=== PATIENT | female | born 1970 | race Caucasian/White ===

== ENCOUNTER → 2017-07-01 | Day surgery (SDC) | payer BC ==
[2017-06-24 11:41] VITALS: BMI 55.0
[~2017-07-01] VITALS: Ht 152.4 cm; Wt 127.3 kg
[~2017-07-01] MED LIST: ACET-1256 PO; AMLO-110 PO; ATRIN INH; BIOT1CHW PO; BUSP1TAB46 PO; EFF75 PO; IPRA1AER2 INH; LIDOCAINE HCL 2% 2 ML VIAL (20MG/ML) ONE; LISI20TA3 PO; ONDANSETRON INJ 2 MG/ML 2 ML VIAL IV PRN; PEDICHW50 PO; PRLSR20 PO; PROPOFOL IV EMULSION 10 MG/ML 20 ML VIAL ONE; SUCR1TAB29 PO; TRAM-10 PO
[2017-07-01 08:55] VITALS: Ht 152.4 cm; Wt 127.3 kg
--- NOTE | 2017-07-01 09:09 | Endo History and Physical ---
History & Physical Date of Service: July 01, 2017. Chief Complaint: RECHECK FOR GASTRIC ULCER PRE GASTRIC BYPASS SURGERY Referring Physician: DR ALBERTS History of Present Illness Patient notes having no specific symptoms today. She is here for follow-up endoscopy due to gastric ulcers seen on a recent upper endoscopy. Past Surgical History Hx Cardiac Surgery: No Hx Internal Defibrillator: No Hx Pacemaker: No Hx Abdominal Surgery: Yes ( X 2, TUBAL LIGATION, D&C) Hx Post-Op Nausea and Vomiting: No Hx Cancer Surgery: No Hx Thoracic Surgery: No Hx Orthopedic: No Hx Urinary Tract Surgery: No Family History Colon CA Social History Smoking Status: Never Smoker Hx Substance Use: No Hx Alcohol Use: Yes (OCCASIONALLY) Allergies Coded Allergies: NO KNOWN DRUG ALLERGIES (Verified Allergy, Unknown, ., 07/01/17) Uncoded Allergies: ORANGES (Allergy, Unknown, ITCHING THROAT, 05/14/17) PEANUTS (Allergy, Unknown, TONGUE ITCHING, BLISTERING UNDER EYES, 05/14/17) CAN EAT PEANUT BUTTER Current Medications Reported Home Medications Medications Dose Route/Sig Max Daily Dose Days Date Category Tylenol (Acetaminophen) 500 Mg Tab 1,000 Mg PO Q4 PRN 06/24/17 Reported Hair Skin & Nails ... 1250-7.5-7.5 Mcg-mg-Unt (Biotin W/ Vitamins C & E) 1 Chw Chw 1 Tab PO QAM 06/24/17 Reported Flintstones Chewable (Pediatric Multiple Vitamin W/) 1 Chw Chw 1 Tab PO QAM 06/24/17 Reported Atrovent Hfa (Ipratropium [place]) 200 Puffs/3400 Mcg Aers 2 Puffs INH QID PRN 06/24/17 Reported Carafate (Sucralfate) 1 Gm Tab 1 Tab PO QID 30 06/24/17 Reported Prilosec (Omeprazole) 20 Mg Capcr 20 Mg PO BID 06/24/17 Reported Norvasc (Amlodipine Besylate) 5 Mg Tab 5 Mg PO QAM 05/14/17 Reported Ultram (Tramadol HCl) 50 Mg Tab 50 Mg PO Q6H PRN 05/14/17 Reported Effexor (Venlafaxine Hcl) 75 Mg Tab 2 Tab PO QAM 05/14/17 Reported Prinivil (Lisinopril) 20 Mg Tab 20 Mg PO QAM 05/14/17 Reported Combivent Respimat (Ipratropium-Albuterol) 1 Aer Aer 1 Puffs INH QID PRN 05/14/17 Reported Buspirone Hcl 7.5 Mg Tab 1 Tab PO QAM 05/14/17 Reported Vital Signs Weight (Kilograms): 127.27 Height (Feet): 5 Height (Inches): 0 Date Time Temp Pulse Resp B/P (MAP) Pulse Ox O2 Delivery O2 Flow Rate FiO2 07/01/17 09:00 36.7 83 20 145/92 (109) 96 Room Air Physical Exam General Appearance: no apparent distress Respiratory/Chest: Auscultation: breath sounds normal Cardiovascular: Heart Auscultation: RRR Abdomen: Inspection & Palpation: soft Assessment and Plan Patient for upper endoscopy today. We discussed the risks to include bleeding, infection, perforation, pulmonary problems and cardiac issues.
--- NOTE | 2017-07-01 09:37 | GI REPORT ---
Patient Name: Qiana Jaime Procedure Date: 07/01/2017 8:59 AM Date of : 1970 Admit Type: Outpatient Age: 46 Gender: Female Attending MD: Wali Jim DO Procedure: Upper GI endoscopy Providers: Wali Jim DO Referring MD: Demarcus Pearson Indications: Follow-up of gastric ulcer Medicines: Monitored Anesthesia Care Complications: No immediate complications. Estimated blood loss: Minimal. Estimated Blood Loss: Estimated blood loss was minimal. Procedure: Pre-Anesthesia Assessment: - Prior to the procedure, a History and Physical was performed, and patient medications, allergies and sensitivities were reviewed. The patient's tolerance of previous anesthesia was reviewed. - The risks and benefits of the procedure and the sedation options and risks were discussed with the patient. All questions were answered and informed consent was obtained. - Patient identification and proposed procedure were verified prior to the procedure by the physician, the nurse and the belly dancer. The procedure was verified in the procedure room. - Pre-procedure physical examination revealed no contraindications to sedation. - ASA Grade Assessment: III - A patient with severe systemic disease. - After reviewing the risks and benefits, the patient was deemed in satisfactory condition to undergo the procedure. - The anesthesia plan was to use monitored anesthesia care (MAC). - Immediately prior to administration of medications, the patient was re-assessed for adequacy to receive sedatives. - The heart rate, respiratory rate, oxygen saturations, blood pressure, adequacy of pulmonary ventilation, and response to care were monitored throughout the procedure. - The physical status of the patient was re-assessed after the procedure. After obtaining informed consent, the endoscope was passed under direct vision. Throughout the procedure, the patient's blood pressure, pulse, and oxygen saturations were monitored continuously. The Scope was introduced through the mouth, and advanced to the third part of duodenum. The upper GI endoscopy was accomplished without difficulty. The patient tolerated the procedure well. Findings: The examined esophagus was normal. The Z-line was regular and was found 35 cm from the incisors. The gastric fundus, gastric body and incisura were normal. Localized minimal inflammation characterized by erythema and granularity was found in the gastric antrum. Biopsies were taken with a cold forceps for histology. Estimated blood loss was minimal. The examined duodenum was normal. Impression: - Normal esophagus. - Z-line regular, 35 cm from the incisors. - Normal gastric fundus, gastric body and incisura. - Mild gastritis (no ulcers seen today). Biopsied. - Normal examined duodenum. Recommendation: - Discharge patient to home (ambulatory). - Advance diet as tolerated today. - Continue present medications. Wali Jim D.O. Wali Jim, 07/01/2017 9:37:11 AM This report has been signed electronically. Note Initiated On: 07/01/2017 8:59 AM Number of Addenda: 0 I attest to the content of the Intraoperative Record and orders documented therein, exceptions below {[id number]}
--- NOTE | 2017-07-01 09:40 | Discharge Instructions ---
Endoscopy Patient Instructions Date / Procedure(s) Performed July 01, 2017. EGD Allergy Information Coded Allergies: NO KNOWN DRUG ALLERGIES (Verified Allergy, Unknown, ., 07/01/17) Uncoded Allergies: ORANGES (Allergy, Unknown, ITCHING THROAT, 05/14/17) PEANUTS (Allergy, Unknown, TONGUE ITCHING, BLISTERING UNDER EYES, 05/14/17) CAN EAT PEANUT BUTTER Discharge Date / Findings July 01, 2017. Mild gastritis (otherwise normal) Medication Instructions Reported Home Medications Medications Dose Route/Sig Max Daily Dose Days Date Category Tylenol (Acetaminophen) 500 Mg Tab 1,000 Mg PO Q4 PRN 06/24/17 Reported Hair Skin & Nails ... 1250-7.5-7.5 Mcg-mg-Unt (Biotin W/ Vitamins C & E) 1 Chw Chw 1 Tab PO QAM 06/24/17 Reported Flintstones Chewable (Pediatric Multiple Vitamin W/) 1 Chw Chw 1 Tab PO QAM 06/24/17 Reported Atrovent Hfa (Ipratropium [place]) 200 Puffs/3400 Mcg Aers 2 Puffs INH QID PRN 06/24/17 Reported Carafate (Sucralfate) 1 Gm Tab 1 Tab PO QID 30 06/24/17 Reported Prilosec (Omeprazole) 20 Mg Capcr 20 Mg PO BID 06/24/17 Reported Norvasc (Amlodipine Besylate) 5 Mg Tab 5 Mg PO QAM 05/14/17 Reported Ultram (Tramadol HCl) 50 Mg Tab 50 Mg PO Q6H PRN 05/14/17 Reported Effexor (Venlafaxine Hcl) 75 Mg Tab 2 Tab PO QAM 05/14/17 Reported Prinivil (Lisinopril) 20 Mg Tab 20 Mg PO QAM 05/14/17 Reported Combivent Respimat (Ipratropium-Albuterol) 1 Aer Aer 1 Puffs INH QID PRN 05/14/17 Reported Buspirone Hcl 7.5 Mg Tab 1 Tab PO QAM 05/14/17 Reported Provider Instructions Activity Restrictions - No exercising or heavy lifting for 24 hours. - Do not drink alcohol the day of the procedure. - Do not drive a car or operate machinery until the day after the procedure. - Do not make any important decisions or sign important papers in 24 hours after the procedure. Following Day: - Return to full activity which may include returning to work/school. Diet Start your diet with liquids and light foods (jello, soup, juice, toast). Then eat your usual diet if not nauseated. Treatment For Common After Affects For mild abdominal pain, bloating, or excessive gas: - Rest - Eat lightly - Lie on right side Follow-Up Information Follow-up with DR ALBERTS and Dr. Brown as scheduled Would continue Omeprazole at 20 mg per day Stop Carafate Follow-up with gastroenterology () as needed. Anesthesia Information What You Should Know You have had a procedure that required some medicine to reduce anxiety and discomfort. This treatment is called moderate sedation. After receiving the treatment, you may be sleepy, but you will be able to breathe on your own. The effects of the treatment may last for several hours. Follow these instructions along with Activity/Diet recommendations noted above: * Do NOT do anything where dizziness or clumsiness would be dangerous. * Rest quietly at home today, then you can be up and about tomorrow. * Have a responsible person stay with you the rest of today. * You may have had an I.V. today. If so, you may take the dressing off later today. Recommendations Call your doctor if: * Trouble breathing * Continuous vomiting for more than 24 hours * Temperature above 101 degrees * Severe abdominal pain or bloating * Pain not relieved by pain medicine ordered * There is increased drainage or redness from any incision * A large amount of rectal bleeding greater than 2-3 tablespoons. (If you had a polyp/s removed or have hemorrhoids, a small amount of blood - from the rectum is to be expected.) * You have any unanswered questions or concerns. IN THE EVENT OF A SERIOUS EMERGENCY, GO TO THE NEAREST EMERGENCY ROOM Your discharge instructions were prepared by provider Wali Jim. Patient Instructions Signature Page Qiana Jaime Patient (or Guardian) Signature/Date: I have read and understand the instructions given to me by my caregivers. Caregiver/RN/Doctor Signature/Date: The above-named patient and/or guardian has received patient instructions on this date. + Original Patient Signature Page (only) stays with chart. Please make copy for patient.
--- NOTE | 2017-07-01 09:54 | Anesthesiology Progress Note ---
Anesthesia Post Op Note Date & Time July 01, 2017 at 09:54 Vital Signs Pain Intensity: 0 Vital Signs Past 12 Hours Date Time Temp Pulse Resp B/P (MAP) Pulse Ox O2 Delivery O2 Flow Rate FiO2 07/01/17 09:35 78 16 132/86 (101) 96 Room Air 07/01/17 09:00 36.7 83 20 145/92 (109) 96 Room Air Notes Mental Status: alert / awake / arousable, participated in evaluation Pt Amnestic to Procedure: Yes Nausea / Vomiting: adequately controlled Pain: adequately controlled Airway Patency, RR, SpO2: stable & adequate BP & HR: stable & adequate Hydration State: stable & adequate Anesthetic Complications: no major complications apparent
[2017-07-01 09:55] VITALS: BP 138/85; PULSE 72; O2SAT 99
== END | disposition home or self-care (01) ==
LOC: MERGE 08:34 → C.GI 08:34
PROVIDERS: ATTEND Internal Medicine Gastroenterology
DX: Z09 Encounter for follow-up examination after completed treatment for conditions other than malignant neoplasm (principal); Z87.19 Personal history of other diseases of the digestive system; K29.50 Unspecified chronic gastritis without bleeding; F41.9 Anxiety disorder, unspecified; F32.9 Major depressive disorder, single episode, unspecified; M19.90 Unspecified osteoarthritis, unspecified site; E66.01 Morbid (severe) obesity due to excess calories; Z68.43 Body mass index [BMI] 50.0-59.9, adult; Z91.018 Allergy to other foods; Z91.010 Allergy to peanuts; Z79.899 Other long term (current) drug therapy; J45.909 Unspecified asthma, uncomplicated; I10 Essential (primary) hypertension; Z80.0 Family history of malignant neoplasm of digestive organs